=== PATIENT | male | born 1980 | race Caucasian/White ===

== ENCOUNTER 2020-03-30 00:18 | Emergency (ER) | payer OTHER ==
[~2020-03-30] VITALS: Ht 182.9 cm; Wt 138.3 kg
[~2020-03-30 00:18] MED LIST: HYDROCODONE-AP1 EAC6 PO; KEFLEX500 MG PO
[2020-03-30 00:24] VITALS: BP 125/78
[2020-03-30] MEDS ORDERED: ZPAK PO (01:09)
== END 2020-03-30 01:14 | disposition home or self-care (01) ==
LOC: M.ERS 00:18
DX: J40 Bronchitis, not specified as acute or chronic (principal); Z20.828 Contact with and (suspected) exposure to other viral communicable diseases; Z88.5 Allergy status to narcotic agent; Z90.49 Acquired absence of other specified parts of digestive tract; Z86.19 Personal history of other infectious and parasitic diseases